=== PATIENT | female | born 1930 | race Caucasian/White ===

== ENCOUNTER → 2016-06-18 | Outpatient (CLI) | payer MEDICARE, BC, OTHER ==
[~2016-06-18] MED LIST: ACETAMINOPHEN500 MG PO; ALBUTEROL0.63 MG/3 INH; BENTYL 10MG CAP10 MG PO; BISCOLAX10 MG PR; BUSPAR 10MG10 MG PO; CALCIUM ACETAT667 MG PO; CARAFATE SU100 MG/ML PO; CATAPRES 0.1MG0.1 MG PO; COLACE 100MG C100 MG PO; CONSTULOSE10 GM/15 M PO; CYMBALTA 30 MG30 MG PO; CYMBALTA30 MG PO; CYMBALTA60 MG PO; DIALYVITE TABL1 EACH PO; DICYCLOMINE HCL10 MG PO; ESCITALOPRAM OXA5 MG PO; FERROUS GLUCON324 M1 PO; FOLIC ACID 1 MG1 MG PO; FOLIC ACID1 MG PO; HYDRALAZINE HCL10 MG PO; HYDRALAZINE HCL50 MG PO; IPRAT-ALBUT 0.5-3 ML INH; KLONOPIN TAB 00.5 MG PO; LACTULOSE10 GM/15 M PO; LORTAB 7.5-3251 EACH PO; MIRALAX PACK 171 PKT PO; MIRTAZAPINE15 MG PO; NEURONTIN 100100 MG PO; NEURONTIN 300300 MG PO; NITRO-DUR 0.4 MG1 EA TD; NITROGLYCERIN1 EAC1 TD; NORVASC 5 MG TAB5 MG PO; OMEPRAZOLE20 M1 PO; POLYETHYLENE GL17 GM PO; RENVELA800 MG PO; TYLENOL 500 MG500 MG PO; VOLTAREN 0.1%2.5 ML TOP; ZOFRAN4 MG PO
[2016-06-18 12:44] LABS: HEMOGLOBIN 7.9 gm/dl (12.3-15.3)
== END ==
LOC: OPSV 11:56
PROVIDERS: Internal Medicine Nephrology
DX: D64.9 Anemia, unspecified (principal)
CPT/HCPCS: 36415; 36430; 85014; 85018; 86850; 86900; 86901; 86920; J7050; P9016

== ENCOUNTER 2016-07-15 19:05 | Emergency (ER) | payer MEDICARE, BC, OTHER ==
[~2016-07-15 19:05] MED LIST changes: -CALCIUM ACETAT667 MG PO; -DIALYVITE TABL1 EACH PO; -ESCITALOPRAM OXA5 MG PO; -MIRTAZAPINE15 MG PO; -NEURONTIN 100100 MG PO; -RENVELA800 MG PO; -ZOFRAN4 MG PO
[2016-07-15 20:18] LABS: RED BLOOD COUNT 2.39 M/UL (4.00-5.10); WHITE BLOOD COUNT 9.9 K/UL (4.5-11.0)
[2016-12-22] MEDS ORDERED: MIRTAZAPINE15 MG PO (03:38)
[2016-12-22] MEDS ORDERED: CALCIUM ACETAT667 MG PO (03:40)
[2016-12-22] MEDS ORDERED: DIALYVITE TABL1 EACH PO (03:42)
[2016-12-22] MEDS ORDERED: IPRAT-ALBUT 0.5-3 ML INH (03:46)
[2016-12-22] MEDS ORDERED: RENVELA800 MG PO (03:49)
[2016-12-22] MEDS ORDERED: ZOFRAN4 MG PO (03:55)
[2016-12-22] MEDS ORDERED: ESCITALOPRAM OXA5 MG PO (03:56)
[2016-12-22] MEDS ORDERED: NEURONTIN 100100 MG PO (04:12)
== END 2016-07-16 03:15 | disposition home or self-care (01) ==
LOC: ER1 19:05
PROVIDERS: Family Medicine
DX: D64.9 Anemia, unspecified (principal); N18.9 Chronic kidney disease, unspecified; Z99.2 Dependence on renal dialysis; Z66 Do not resuscitate; Z88.0 Allergy status to penicillin; Z90.49 Acquired absence of other specified parts of digestive tract; Z79.84 Long term (current) use of oral hypoglycemic drugs; Z79.899 Other long term (current) drug therapy
CPT/HCPCS: 36415; 36430; 80053; 82272; 85025; 85610; 85730; 86850; 86900; 86901; 86920; 99284; P9016